=== PATIENT | male | born 1990 | race Caucasian/White ===

== ENCOUNTER 2023-11-27 17:21 | Emergency (ER) | payer OTHER ==
[2023-11-27 17:54] VITALS: BP 140/100; PULSE 76; RESP 16; TEMP 98.2; BMI 22.3
[2023-11-27] MEDS ORDERED: LIDOCAINE HCL 2% (20ML MULTI-DOSE VIAL) ONE (18:11)
[2023-11-27] MEDS: LIDOCAINE HCL 2% (50ML VIAL) SQ ONE (18:12)
== END 2023-11-27 19:13 | disposition home or self-care (01) ==
LOC: FER 17:21
DX: S60.031A Contusion of right middle finger without damage to nail, initial encounter (principal); S60.041A Contusion of right ring finger without damage to nail, initial encounter; W22.8XXA Striking against or struck by other objects, initial encounter; Y99.0 Civilian activity done for income or pay
CPT/HCPCS: 99283-25